=== PATIENT | female | born 1970 | race Caucasian/White ===

== ENCOUNTER 2024-05-16 06:10 | Inpatient (IN) | payer BC ==
[2024-05-14 09:21] LABS: HCG,QUAL RESULT NEGATIVE (NEGATIVE)
[~2024-05-16] VITALS: Ht 165.1 cm; Wt 97.5 kg
[2024-05-16] MEDS: CEFAZOLIN SOD 2 GM in D5W 50 ML IV ONE (06:30)
[2024-05-16] MEDS ORDERED: ePHEDrine sulfate 50 MG/ML VIAL ONE (07:45)
[2024-05-16] MEDS ORDERED: OXYCODONE/ACETAMINOPHEN 5-325 TABLET PO PRN ×4 (10:00)
[2024-05-16] MEDS ORDERED: NALOXONE HCL 0.4 MG/ML AMP (NARCAN) IVP PRN ×2 (10:00→10:15)
[2024-05-16] MEDS ORDERED: SIMETHICONE 80 MG TAB.CHEW PO PRN (10:00)
[2024-05-16] MEDS ORDERED: ONDANSETRON HCL 4 MG/2 ML VIAL IVP PRN ×2 (10:00→10:15)
[2024-05-16 10:09] LABS: BASOPHILS % (AUTO) 0.3 % (0.0-2.0); EOSINOPHILS # (AUTO) 0.1 K/uL (0.0-0.4); EOSINOPHILS % (AUTO) 0.4 % (0.0-4.0); HEMATOCRIT 34.6 % (36-48); HEMOGLOBIN 11.6 g/dL (12.0-16.0); LYMPHOCYTES # (AUTO) 1.5 K/uL (1.0-5.5); LYMPHOCYTES % (AUTO) 11.7 % (20.5-51.5); MEAN CORPUSCULAR HEMOGLOBIN 30 pg (27-31); MEAN CORPUSCULAR HGB CONC 34 % (32-36); MEAN CORPUSCULAR VOLUME 89 fL (79.0-98.0); MONOCYTES # (AUTO) 0.5 K/uL (0.0-1.0); MONOCYTES % (AUTO) 4.1 % (1.7-9.3); NEUTROPHILS # (AUTO) 10.4 K/uL (1.8-7.7); NEUTROPHILS % (AUTO) 83.5 % (40.0-70.0); PLATELET COUNT (AUTO) 348 K/uL (130-430); RED BLOOD CELL COUNT(AUTO) 3.88 MIL/uL (4.2-6.2); RED CELL DISTRIBUTION WIDTH 13.6 % (9.0-15.0); WHITE BLOOD COUNT (AUTO) 12.5 K/uL (4.8-10.8)
[2024-05-16] MEDS ORDERED: DIPHENHYDRAMINE INJ 50 MG/ML VIAL IM PRN (10:15)
[2024-05-16] MEDS ORDERED: MORPHINE SULFATE 10MG/10ML PF AMP SP SCH (10:15)
[2024-05-16] MEDS ORDERED: KETOROLAC TROMETHAMINE 60 MG/2 ML VIAL IM PRN (10:15)
[2024-05-16 12:00] VITALS: BP_SYST 125; PULSE 86; RESP 18; TEMP 97.5; O2SAT 98
[2024-05-16] MEDS: LR 1,000 ML IV SCH (13:25)
[2024-05-16] MEDS: CEFAZOLIN 2 GM IVPB PREMIX 50 ML IV SCH (14:34)
[2024-05-16 16:00] VITALS: BP_SYST 124; PULSE 76; RESP 19; TEMP 97.3; O2SAT 98
[2024-05-16 20:00] VITALS: BP_SYST 122; PULSE 83; RESP 18; TEMP 97.7; O2SAT 98
[2024-05-16] MEDS ORDERED: ZOLPIDEM TARTRATE 5 MG TABLET PO PRN (21:00)
[2024-05-16] MEDS ORDERED: TEMAZEPAM 15 MG CAPSULE PO PRN (21:00)
[2024-05-16] MEDS ORDERED: SENNOSIDES/DOCUSATE SODIUM 1 TAB TABLET(SENOKOT-S) PO PRN (21:00)
[2024-05-17] VITALS: BP_SYST 125; PULSE 84; RESP 18; TEMP 98; O2SAT 95
[2024-05-17 08:00] VITALS: BP_SYST 123; PULSE 77; RESP 16; TEMP 97.1; O2SAT 95
[2024-05-17 08:02] VITALS: O2SAT 95
[2024-05-17] MEDS: HYDROcodone/ACETAMIN 5-325 MG TAB (NORCO/ VICODIN) PO PRN (08:49)
[2024-05-17] MEDS ORDERED: BISACODYL 10 MG/SUPPOSITORY RC SCH (10:00)
[2024-05-17 10:01] LABS: BASOPHILS % (AUTO) 0.2 % (0.0-2.0); EOSINOPHILS % (AUTO) 0.1 % (0.0-4.0); HEMATOCRIT 31.8 % (36-48); HEMOGLOBIN 10.6 g/dL (12.0-16.0); LYMPHOCYTES # (AUTO) 1.2 K/uL (1.0-5.5); LYMPHOCYTES % (AUTO) 12.1 % (20.5-51.5); MEAN CORPUSCULAR HEMOGLOBIN 30 pg (27-31); MEAN CORPUSCULAR HGB CONC 33 % (32-36); MEAN CORPUSCULAR VOLUME 90 fL (79.0-98.0); MONOCYTES # (AUTO) 0.7 K/uL (0.0-1.0); MONOCYTES % (AUTO) 7.4 % (1.7-9.3); NEUTROPHILS # (AUTO) 7.9 K/uL (1.8-7.7); NEUTROPHILS % (AUTO) 80.2 % (40.0-70.0); PLATELET COUNT (AUTO) 379 K/uL (130-430); RED BLOOD CELL COUNT(AUTO) 3.54 MIL/uL (4.2-6.2); RED CELL DISTRIBUTION WIDTH 13.7 % (9.0-15.0); WHITE BLOOD COUNT (AUTO) 9.8 K/uL (4.8-10.8)
[2024-05-17] MEDS ORDERED: ONDANSETRON HCL 4 MG/2 ML VIAL IVP PRN (10:30)
[2024-05-17 12:34] VITALS: BP_SYST 120; PULSE 81; RESP 18; TEMP 98.9; O2SAT 98
[2024-05-17] MEDS: SENNOSIDES/DOCUSATE SODIUM 1 TAB TABLET(SENOKOT-S) PO PRN (14:49)
[2024-05-17 15:32] VITALS: BP_SYST 123; PULSE 77; RESP 16; TEMP 97.1; O2SAT 96
== END 2024-05-17 16:00 | disposition home or self-care (01) | DRG 743 ==
LOC: SMU 06:10
PROVIDERS: ADMIT Specialist; ATTEND Specialist
PROC: 0UT70ZZ Resection of Bilateral Fallopian Tubes, Open Approach (ICD-10-PCS; 2024-05-16)
PROC: 0DNW0ZZ Release Peritoneum, Open Approach (ICD-10-PCS; 2024-05-16)
PROC: 0UT90ZZ Resection of Uterus, Open Approach (ICD-10-PCS; principal; 2024-05-16 07:52)
DX: N73.6 Female pelvic peritoneal adhesions (postinfective) (principal); D25.9 Leiomyoma of uterus, unspecified; R19.09 Other intra-abdominal and pelvic swelling, mass and lump; Z79.899 Other long term (current) drug therapy
CPT/HCPCS: 36415; 84703; 85025; 86886; 86900; 86901; 86920; 87081; 88305; 88307; J0690; J2274; J2405; J2704; J2710; J2765; J3010; J3465; J3490; J7060; J7120